=== PATIENT | female | born 1995 | race Caucasian/White ===

== ENCOUNTER 2019-11-26 13:05 | Emergency (ER) | payer MEDICAID ==
[~2019-11-26] VITALS: Ht 152.4 cm; Wt 47.0 kg
[~2019-11-26 13:05] MED LIST: CYCL-1 PO; IBUP-1984 PO; NO HOME MEDS
[2019-11-26 13:08] VITALS: BP 112/67
[2019-11-26] MEDS ORDERED: AMOX500C2 PO (13:38)
== END 2019-11-26 13:51 | disposition home or self-care (01) ==
LOC: ER 13:05
DX: J02.9 Acute pharyngitis, unspecified (principal); Z79.899 Other long term (current) drug therapy
CPT/HCPCS: 99283